=== PATIENT | male | born 1965 | race African-American/Black ===

== ENCOUNTER 2018-06-19 13:55 | Inpatient (IN) | payer OTHER ==
[2018-06-19 18:38] VITALS: BMI 22.8
--- NOTE | 2018-06-19 20:10 | HP ---
CIWA Score Nausea/Vomitin-No Nausea/No Vomiting Muscle Tremors: 1-None Visible, but [place] Anxiety: 1-Mildly Anxious Agitation: 1-Slight > Activity Paroxysmal Sweats: No Perspiration Orientation: 0-Oriented Tacttile Disturbances: 3-Moderate Itch/Numb/Burn Auditory Disturbances: 2-Mild Harshness/Frighten Visual Disturbances: 0-None Headache: 0-None Present CIWA-Ar Total Score: 8 - Admission Criteria OASAS Guidelines: Admission for Medically Managed Detox: Requires at least one of the followin. CIWA greater than 12 2. Seizures within the past 24 hours 3. Delirium tremens within the past 24 hours 4. Hallucinations within the past 24 hours 5. Acute intervention needed for co occurring medical disorder 6. Acute intervention needed for co occurring psychiatric disorder 7. Severe withdrawal that cannot be handled at a lower level of care (continued vomiting, continued diarrhea, abnormal vital signs) requiring intravenous medication and/or fluids 8. Patient presents the following: Acute intervention needed for co-occurring med or psych disorder Admission Criteria Met: Admission criteria met Admission ROS [facility] - [facility] Chief Complaint: C/O WITHDRAWAL SX'S. SEEKING DETOX AND THEN REHAB Allergies/Adverse Reactions: Allergies Allergy/AdvReac Type Severity Reaction Status Date / Time Penicillins AdvReac Verified 06/19/18 20:11 History of Present Illness: 53 Y.O. MALE WITH ALCOHOLISM HERE FOR DETOX. CLIENT WAS REFERRED BY [facility]. THIS IS HIS FIRST TIME HERE. HE C/O WITHDRAWAL SX'S. CURRENTLY CIWA IS 8. HE STATES HE NEEDS A DRINK FIRST THING EVERY MORNING. HE DRINKS A PINT OF LIQUOR DAILY. LAST DRANK THIS MORNING. REPORTS LAST INPATIENT DETOX 3 MONTHS AGO AT [facility]. DENIES ANY SIGNIFICANT PERIOD OF CLEAN TIME. DENIES HX/O SI/HI, AVH, SEIZURE D/O, BUT HAS BLACKED OUT BEFORE. PMHX- TUSCARORA, PSYCH- SCHIZOPHRENIA, BIPOLAR MEDS- LITHIUM LAST TAKEN 1 MONTH AGO Exam Limitations: No Limitations - Ebola screening Have you traveled outside of the country in the last 21 days: No Have you had contact with anyone from an Ebola affected area: No Do you have a fever: No - Review of Systems Constitutional: Loss of Appetite EENT: reports: Hearing Loss, Tinnitus (LEFT EAR) Respiratory: reports: No Symptoms reported Cardiac: reports: No Symptoms Reported GI: reports: Poor Appetite, Poor Fluid Intake : reports: No Symptoms Reported Musculoskeletal: reports: No Symptoms Reported Integumentary: reports: No Symptoms Reported Neuro: reports: Tremors Endocrine: reports: No Symptoms Reported Hematology: reports: No Symptoms Reported Psychiatric: reports: Depressed Other Systems: Reviewed and Negative Patient History - Patient Medical History Hx Anemia: No Hx Asthma: No Hx Chronic Obstructive Pulmonary Disease (COPD): No Hx Cancer: No Hx Cardiac Disorders: No Hx Congestive Heart Failure: No Hx Hypertension: No Hx Hypercholesterolemia: No Hx Pacemaker: No HX Cerebrovascular Accident: No Hx Seizures: No Hx Dementia: No Hx Diabetes: No Hx Gastrointestinal Disorders: No Hx Liver Disease: No Hx Genitourinary Disorders: No Hx Sexually Transmitted Disorders: No Hx Renal Disease (ESRD): No Hx Thyroid Disease: No Hx Human Immunodeficiency Virus (HIV): No Hx Hepatitis C: No Hx Depression: Yes Hx Suicide Attempt: No Hx Bipolar Disorder: Yes (LITHIUM) Hx Schizophrenia: No Other Medical History: DENIES - Patient Surgical History Past Surgical History: Yes Hx Appendectomy: Yes Anesthesia Reaction: No - PPD History Previous Implant?: Yes Documented Results: Negative w/o proof Implanted On Prior [facility] Admission?: No PPD to be Administered?: Yes - Smoking Cessation Smoking history: Current every day smoker Have you smoked in the past 12 months: Yes Aproximately how many cigarettes per day: 6 Cigars Per Day: 0 Hx Chewing Tobacco Use: No Initiated information on smoking cessation: Yes 'Breaking Loose' booklet given: 06/19/18 - Substance & Tx. History Hx Alcohol Use: Yes Hx Substance Use: Yes Substance Use Type: Alcohol Hx Substance Use Treatment: Yes ([facility]) - Substances Abused LIQUOR-E&J Route: Oral Frequency: Daily Amount used: 1 PINT Age of first use: 17 Date of Last Use: 06/19/18 Family Disease History - Family Disease History Family Disease History: Other: Father (ALCOHOL) Admission Physical Exam [facility] - Vital Signs Vital Signs: Vital Signs - 24 hr 06/19/18 18:34 Temperature 96.2 F L Pulse Rate 95 H Respiratory 20 Rate Blood Pressure 114/80 - Physical General Appearance: Yes: Disheveled, Tremorous (FELT), Anxious HEENTM: Yes: EOMI, Normocephalic, Normal Voice, MONAE, Pharynx Normal, Other ( LOUD VOICE) Respiratory: Yes: Chest Non-Tender, Lungs Clear, Normal Breath Sounds, No Respiratory Distress, No Accessory Muscle Use Neck: Yes: No masses,lesions,Nodules, Supple, Trachea in good position Breast: Yes: Breast Exam Deferred Cardiology: Yes: Regular Rhythm, Regular Rate, S1, S2 Abdominal: Yes: Normal Bowel Sounds, Non Tender, Soft Genitourinary: Yes: Within Normal Limits (NO C/O) Back: Yes: Normal Inspection Musculoskeletal: Yes: full range of Motion, Gait Steady Extremities: Yes: Normal Range of Motion, Non-Tender, Tremors (FELT) Neurological: Yes: Fully Oriented, Alert, Motor Strength 5/5, Depressed Affect Integumentary: Yes: Dry, Warm Lymphatic: Yes: Within Normal Limits - Diagnostic (1) Alcohol dependence with uncomplicated withdrawal Current Visit: Yes Status: Acute (2) Bipolar 1 disorder, depressed Current Visit: Yes Status: Suspected (3) TUSCARORA (hard of hearing) Current Visit: Yes Status: Chronic Qualifiers: Hearing loss type: unspecified (4) Nicotine dependence Current Visit: Yes Status: Chronic Qualifiers: Nicotine product type: cigarettes Substance use status: uncomplicated Qualified Code(s): F17.210 - Nicotine dependence, cigarettes, uncomplicated (5) Homeless Current Visit: Yes Status: Chronic Cleared for Admission [facility] - Detox or Rehab [facility] Level of Care: Medically Managed Detox Regimen/Protocol: Librium Claeared for Rehab Admission: No [facility] Breath Alcohol Content Breath Alcohol Content: 0 Urine Drug Screen - Results Drug Screen Negative: No Urine Drug Screen Results: THC-Marijuana, BZO-Benzodiazepines
[2018-06-19] MEDS ORDERED: MAG HYDROX/AL HYDROX/SIMETH 30 ML UNIT-DOSE CUP PO PRN (20:27)
[2018-06-19] MEDS ORDERED: MENTHOL/PHENOL 1 EACH UD MM PRN (20:27)
[2018-06-19] MEDS ORDERED: hydrOXYzine PAMOATE 50 MG CAPSULE (FP) PO PRN (20:27)
[2018-06-19] MEDS ORDERED: IBUPROFEN 400 MG TABLET (FP) PO PRN (20:27)
[2018-06-19] MEDS ORDERED: MAGNESIUM HYDROX 2400MG/30ML ORAL SUSPENSION 30 ML CUP PO PRN (20:27)
[2018-06-19] MEDS ORDERED: LOPERAMIDE HCL 2 MG CAPSULE PO PRN (20:27)
[2018-06-19] MEDS ORDERED: guaiFENesin/D-METHORPHAN HB 10 ML UNIT-DOSE CUPS PO PRN (20:27)
[2018-06-19] MEDS ORDERED: chlordiazePOXIDE HCL 25 MG CAPSULE PO PRN (20:27)
[2018-06-19] MEDS ORDERED: MAGNESIUM CITRATE 300 ML BOTTLE PO PRN (20:27)
[2018-06-19] MEDS ORDERED: P-EPHED 60MG/TRIPROLIDI 2.5MG TABLET PO PRN (20:27)
[2018-06-19] MEDS ORDERED: ACETAMINOPHEN 325 MG TABLET (FP) PO PRN (20:27)
[2018-06-19] MEDS ORDERED: MELATONIN 5 MG TABLETS PO PRN (22:00)
[2018-06-19] MEDS: THIAMINE HCL 100 MG TABLET (FP) PO SCH (22:26)
[2018-06-19] MEDS: chlordiazePOXIDE HCL 25 MG CAPSULE PO SCH (22:27)
[2018-06-20] MEDS: chlordiazePOXIDE HCL 25 MG CAPSULE PO SCH ×4 (06:00→22:51)
--- NOTE | 2018-06-20 10:12 | CONSULT ---
[facility] Psychiatric Consult - Data Date of interview: 06/20/18 Admission source: [facility] Identifying data: This is a 53 years old male, single, domiciled, unempoloyed, on SSI support, with psychiatric hospitalization history, with history of Alcohol and Nicotine dependence, is here reporting withdrawal symptomsm and seeking for detox. As per chart ashok has Bipolar Disorde history. Substance Abuse History: Smoking history: Current every day smoker. Have you smoked in the past 12 months: Yes. Aproximately how many cigarettes per day: 6. Cigars Per Day: 0. Hx Chewing Tobacco Use: No. Initiated information on smoking cessation: Yes. 'Breaking Loose' booklet given: 06/19/18. - Substance & Tx. History. Hx Alcohol Use: Yes. Hx Substance Use: Yes. Substance Use Type : Alcohol. Hx Substance Use Treatment: Yes ([facility]). - Substances Abused. LIQUOR-E&J. Route: Oral. Frequency: Daily. Amount used : 1 PINT. Age of first use: 17. Date of Last Use: 06/19/18 Medical History: Hearing problems. Denies significant medical problems. Psychiatric History: Patient reports to carry Bipolar Disorder with most recent psychiatric admission 2 months ago at [facility] , reports taking [place] 300mg po bid, refusing to take [place] during detox, but motivated to restsrt Thoreau during rehabilitation treatment. Denies suicidal, homicidal history Physical/Sexual Abuse/Trauma History: Denies Additional Comment: Consider [place] 300mg po bid Mental Status Exam - Mental Status Exam Alert and Oriented to: Person Cognitive Function: Fair Patient Appearance: Unkempt Mood: Sad Affect: Flat Patient Behavior: Cooperative Speech Pattern: Delayed Voice Loudness: Mildly Soft/Quiet Thought Process: Goal Oriented Thought Disorder: Being Controlled Hallucinations: Denies Suicidal Ideation: Denies Homicidal Ideation: Denies Insight/Judgement: Fair Sleep: Difficulty falling asleep Appetite: Fair Muscle strength/Tone: Mild Hypotonicity Gait/Station: Shuffling Additional Comments: Consider [place] 300mg po bid Psychiatric Findings - Problem List ([place] 1, 2,3) (1) Alcohol dependence with uncomplicated withdrawal Current Visit: Yes Status: Acute (2) TANGIRNAQ (hard of hearing) Current Visit: Yes Status: Chronic Qualifiers: Hearing loss type: unspecified (3) Nicotine dependence Current Visit: Yes Status: Chronic Qualifiers: Nicotine product type: cigarettes Substance use status: uncomplicated Qualified Code(s): F17.210 - Nicotine dependence, cigarettes, uncomplicated (4) Bipolar 1 disorder, depressed Current Visit: Yes Status: Suspected - Initial Treatment Plan Initial Treatment Plan: Consider [place] 300mg po bid
--- NOTE | 2018-06-20 10:31 | PN ---
[facility] CIWA - CIWA Score Nausea/Vomitin-Mild Nausea/No Vomiting Muscle Tremors: 3 Anxiety: 2 Agitation: 3 Paroxysmal Sweats: 1-Minimal Palms Moist Orientation: 1-Uncertain about Date Tacttile Disturbances: 0-None Auditory Disturbances: 0-None Visual Disturbances: 0-None Headache: 1-Very Mild CIWA-Ar Total Score: 12 [facility] Progress Note (SOAP) Subjective: tremor sweat mild gi distress Objective: 06/20/18 10:31 Vital Signs Temperature 97.8 F 06/20/18 09:51 Pulse Rate 72 06/20/18 09:51 Respiratory Rate 18 06/20/18 09:51 Blood Pressure 123/64 06/20/18 09:51 O2 Sat by Pulse Oximetry (%) lab pending Assessment: 06/20/18 10:31 alcohol withdrawal sx Plan: continue alcohol detox
[2018-06-20 10:34] LABS: HEMATOCRIT 38.8 % (35.4-49); HEMOGLOBIN 12.8 GM/dL (11.7-16.9); MCH 28.8 pg (25.7-33.7); MCHC 33.1 g/dl (32.0-35.9); MEAN CELL VOLUME 87.1 fl (80-96); MEAN PLT VOLUME 7.2 fl (7.5-11.1); PLATELET COUNT 257 K/MM3 (134-434); RBC 4.45 M/mm3 (4.00-5.60); RDW 14.9 % (11.9-15.9); WHITE BLOOD COUNT 8.9 K/mm3 (4.0-10.0)
[2018-06-20] MEDS: PRENATAL VITAMINS W/ FOLIC ACID TABLET (FP) PO SCH (11:01)
[2018-06-20] MEDS: NICOTINE 14 MG/24 HOURS TOPICAL PATCH TD SCH (11:02)
[2018-06-20 11:42] LABS: ALK PHOS 65 U/L (45-117); ANION GAP 8 MMOL/L (8-16); BILIRUBIN,TOTAL 0.3 mg/dL (0.2-1); BLOOD UREA NITROGEN 9 mg/dL (7-18); CALCIUM 8.3 mg/dL (8.5-10.1); CHLORIDE 110 mmol/L (98-107); CO2 24 mmol/L (21-32); CREATININE 0.7 mg/dL (0.55-1.3); GLUCOSE,RANDOM 78 mg/dL (74-106); POTASSIUM 4.2 mmol/L (3.5-5.1); SGOT/AST 13 U/L (15-37); SGPT/ALT 17 U/L (13-61); SODIUM 143 mmol/L (136-145); TOT PROT 5.7 g/dl (6.4-8.2)
--- NOTE | 2018-06-20 12:52 | EKG ---
Test Reason : Blood Pressure : / mmHG Vent. Rate : 075 BPM Atrial Rate : 075 BPM P-R Int : 188 ms QRS Dur : 100 ms QT Int : 372 ms P-R-T Axes : 061 006 067 degrees QTc Int : 415 ms NORMAL SINUS RHYTHM NORMAL ECG NO PREVIOUS ECGS AVAILABLE Confirmed by DORYS LEON MD ([id number]) on 06/20/2018 12:51:53 PM Referred By: Confirmed By:DORYS LEON MD
[2018-06-20] MEDS: THIAMINE HCL 100 MG TABLET (FP) PO SCH (22:51)
[2018-06-21] MEDS: chlordiazePOXIDE HCL 25 MG CAPSULE PO SCH ×2 (06:03→10:36)
[2018-06-21 09:35] VITALS: BP 108/61; PULSE 85; TEMP 95.8
[2018-06-21] MEDS: PRENATAL VITAMINS W/ FOLIC ACID TABLET (FP) PO SCH (10:35)
[2018-06-21] MEDS: NICOTINE 14 MG/24 HOURS TOPICAL PATCH TD SCH (10:36)
--- NOTE | 2018-06-21 15:14 | PN ---
[facility] Progress Note Note: NOTIFIED BY STAFF PATIENT REQUESTED TO SIGN OUT AMA. PATIENT ENCOURAGED TO COMPLETE DETOX BUT REFUSED. PATIENT STATED " I HAVE TO GO BACK TO [facility]". PATIENT DENIES SI/HI. PATIENT ADVISED TO SEEK MEDICAL ATTENTION IF WITHDRAWAL SYMPTOMS WORSEN AND TO FOLLOW UP PCP FOR FOLLOW UP SOON POSSIBLE.
--- NOTE | 2018-06-21 15:15 | DS ---
[facility] Detox Discharge Summary Admission Date: 06/19/18 Discharge Date: 06/21/18 - History Present History: Alcohol Dependence - Physical Exam Results Vital Signs: Vital Signs Temperature 95.8 F L 06/21/18 09:34 Pulse Rate 85 06/21/18 09:34 Respiratory Rate 18 06/21/18 09:34 Blood Pressure 108/61 06/21/18 09:34 O2 Sat by Pulse Oximetry (%) - Treatment Hospital Course: Detoxed Safely - Medication Discharge Medications: Ambulatory Orders Onycha Carbonate [Eskalith -] 300 mg PO BID 06/19/18 - AMA Did Patient Leave Against Medical Advice: Yes
[2018-06-21] MEDS ORDERED: chlordiazePOXIDE 5 MG CAPSULE PO SCH (23:00)
[2018-06-22] MEDS ORDERED: chlordiazePOXIDE HCL 10 MG CAPSULE PO SCH (23:00)
== END 2018-06-21 11:41 | disposition left against medical advice (07) | DRG 770 ==
LOC: YASAS 13:55 → Y3N 17:59
PROC: HZ2ZZZZ Detoxification Services for Substance Abuse Treatment (ICD-10-PCS; principal; 2018-06-19)
DX: F10.230 Alcohol dependence with withdrawal, uncomplicated (principal); F17.210 Nicotine dependence, cigarettes, uncomplicated; F31.9 Bipolar disorder, unspecified; H91.90 Unspecified hearing loss, unspecified ear; Z88.0 Allergy status to penicillin; Z59.0 Homelessness
CPT/HCPCS: 36415; 80053; 85027; 86593; 93005; 93010

== ENCOUNTER 2018-07-22 10:20 | Inpatient (IN) | payer OTHER ==
[2018-07-22 12:53] VITALS: BMI 22.3
--- NOTE | 2018-07-22 13:45 | HP ---
CIWA Score Nausea/Vomitin Muscle Tremors: 2 Anxiety: 1-Mildly Anxious Agitation: 1-Slight > Activity Paroxysmal Sweats: 1-Minimal Palms Moist Orientation: 1-Uncertain about Date Tacttile Disturbances: 1-Very Mild Itch/Numbness Auditory Disturbances: 1-Very Mild Visual Disturbances: 2-Mild Sensitivity Headache: 0-None Present CIWA-Ar Total Score: 12 - Admission Criteria OASAS Guidelines: Admission for Medically Managed Detox: Requires at least one of the followin. CIWA greater than 12 2. Seizures within the past 24 hours 3. Delirium tremens within the past 24 hours 4. Hallucinations within the past 24 hours 5. Acute intervention needed for co occurring medical disorder 6. Acute intervention needed for co occurring psychiatric disorder 7. Severe withdrawal that cannot be handled at a lower level of care (continued vomiting, continued diarrhea, abnormal vital signs) requiring intravenous medication and/or fluids 8. Admission ROS S - [facility] Chief Complaint: WITHDRAWAL SYMPTOMS Allergies/Adverse Reactions: Allergies Allergy/AdvReac Type Severity Reaction Status Date / Time Penicillins AdvReac Verified 07/22/18 13:29 History of Present Illness: 53 Y.O. 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 HE WAS LAST THERE ON 06/21/18 FOR DETOX BUT LEFT AMA. Exam Limitations: No Limitations - Ebola screening Have you traveled outside of the country in the last 21 days: No Have you had contact with anyone from an Ebola affected area: No Have you been sick,other than usual withdrawal symptoms: No Do you have a fever: No - Review of Systems Constitutional: Night Sweats, Changes in sleep EENT: reports: Blurred Vision Respiratory: reports: Wheezing Cardiac: reports: No Symptoms Reported GI: reports: No Symptoms Reported : reports: No Symptoms Reported Musculoskeletal: reports: Back Pain Integumentary: reports: No Symptoms Reported Neuro: reports: Headache, Tremors Endocrine: reports: No Symptoms Reported Hematology: reports: No Symptoms Reported Psychiatric: reports: Mood/Affect Appropiate, other (BIPOLAR AND SCHIZOPHRENIA) Other Systems: Reviewed and Negative Patient History - Patient Medical History Hx Anemia: No Hx Asthma: No Hx Chronic Obstructive Pulmonary Disease (COPD): No Hx Cancer: No Hx Cardiac Disorders: No Hx Congestive Heart Failure: No Hx Hypertension: No Hx Hypercholesterolemia: No Hx Pacemaker: No HX Cerebrovascular Accident: No Hx Seizures: No Hx Dementia: No Hx Diabetes: No Hx Gastrointestinal Disorders: No Hx Liver Disease: No Hx Genitourinary Disorders: No Hx Sexually Transmitted Disorders: No Hx Renal Disease (ESRD): No Hx Thyroid Disease: No Hx Human Immunodeficiency Virus (HIV): No Hx Hepatitis C: No Hx Depression: Yes Hx Suicide Attempt: No Hx Bipolar Disorder: Yes (LITHIUM) Hx Schizophrenia: Yes (DENIED AUDITORY AND VISUAL HALLUCINATIONS ) - Patient Surgical History Past Surgical History: Yes Hx Abdominal Surgery: Yes (HERNIA REPAIR ) Hx Appendectomy: Yes Anesthesia Reaction: No - PPD History Previous Implant?: Yes Documented Results: Negative w/o proof Implanted On Prior [facility] Admission?: Yes Date: 06/21/18 PPD to be Administered?: Yes - Reproductive History Patient is a Female of Child Bearing Age (11 -55 yrs old): No - Smoking Cessation Smoking history: Current every day smoker Have you smoked in the past 12 months: Yes Aproximately how many cigarettes per day: 6 Cigars Per Day: 0 Hx Chewing Tobacco Use: No Initiated information on smoking cessation: Yes 'Breaking Loose' booklet given: 07/22/18 - Substance & Tx. History Hx Alcohol Use: Yes Hx Substance Use: Yes Substance Use Type: Alcohol Hx Substance Use Treatment: Yes ([facility]) - Substances Abused Alcohol Route: Oral Frequency: Daily Amount used: 2 PINTS JACK Age of first use: 17 Date of Last Use: 07/22/18 K2 Route: Smoking Frequency: Daily Amount used: 1 JOINT Age of first use: 51 Date of Last Use: 07/22/18 Family Disease History - Family Disease History Family Disease History: Other: Father (ALCOHOL) Admission Physical Exam S - Vital Signs Vital Signs: Vital Signs - 24 hr 07/22/18 12:52 Temperature 97.9 F Pulse Rate 99 H Respiratory 16 Rate Blood Pressure 117/71 - Physical General Appearance: Yes: Disheveled, Sweating, Anxious HEENTM: Yes: Hearing grossly Normal, Normocephalic, Normal Voice Respiratory: Yes: Chest Non-Tender, Lungs Clear, Normal Breath Sounds, No Respiratory Distress Neck: Yes: No masses,lesions,Nodules Breast: Yes: Breast Exam Deferred Cardiology: Yes: Regular Rhythm, Regular Rate Abdominal: Yes: Normal Bowel Sounds, Non Tender, Flat Genitourinary: Yes: Other (No complaints reported) Back: Yes: Normal Inspection Musculoskeletal: Yes: full range of Motion, Gait Steady, Pelvis Stable Extremities: Yes: Normal Capillary Refill, Normal Inspection, Normal Range of Motion Neurological: Yes: Alert, Normal Mood/Affect, Normal Response Integumentary: Yes: Normal Color, Dry, Warm - Diagnostic (1) Alcohol dependence with uncomplicated withdrawal Current Visit: Yes Status: Chronic (2) Nicotine dependence Current Visit: Yes Status: Chronic Qualifiers: Nicotine product type: cigarettes Substance use status: uncomplicated Qualified Code(s): F17.210 - Nicotine dependence, cigarettes, uncomplicated (3) FALSE PASS (hard of hearing) Current Visit: Yes Status: Chronic Qualifiers: Hearing loss type: unspecified Cleared for Admission [facility] - Detox or Rehab [facility] Level of Care: Medically Managed Detox Regimen/Protocol: Librium [facility] Breath Alcohol Content Breath Alcohol Content: 0 Urine Drug Screen - Results Drug Screen Negative: Yes
[2018-07-22] MEDS ORDERED: ACETAMINOPHEN 325 MG TABLET (FP) PO PRN (14:04)
[2018-07-22] MEDS ORDERED: MENTHOL/PHENOL 1 EACH UD MM PRN (14:04)
[2018-07-22] MEDS ORDERED: LOPERAMIDE HCL 2 MG CAPSULE PO PRN (14:04)
[2018-07-22] MEDS ORDERED: MAG HYDROX/AL HYDROX/SIMETH 30 ML UNIT-DOSE CUP PO PRN (14:04)
[2018-07-22] MEDS ORDERED: P-EPHED 60MG/TRIPROLIDI 2.5MG TABLET PO PRN (14:04)
[2018-07-22] MEDS ORDERED: hydrOXYzine PAMOATE 50 MG CAPSULE (FP) PO PRN (14:04)
[2018-07-22] MEDS ORDERED: NICOTINE POLACRILEX 2 MG GUM BUC PRN (14:04)
[2018-07-22] MEDS ORDERED: guaiFENesin/D-METHORPHAN HB 10 ML UNIT-DOSE CUPS PO PRN (14:04)
[2018-07-22] MEDS ORDERED: IBUPROFEN 400 MG TABLET (FP) PO PRN (14:04)
[2018-07-22] MEDS ORDERED: chlordiazePOXIDE HCL 25 MG CAPSULE PO PRN (14:04)
[2018-07-22] MEDS ORDERED: MAGNESIUM HYDROX 2400MG/30ML ORAL SUSPENSION 30 ML CUP PO PRN (14:04)
[2018-07-22] MEDS ORDERED: MAGNESIUM CITRATE 300 ML BOTTLE PO PRN (14:04)
--- NOTE | 2018-07-22 15:37 | CONSULT ---
[facility] Psychiatric Consult - Data Date of interview: 07/22/18 Admission source: [facility] Identifying data: This is a 53 years old male , single, homeless, on PA support , with psychiatric hospitalization history, history of Bipolar Disorder, is here seeking detox reporting withdrawal symptoms, reports abusing history of K-2 , Alcohol and Nicotine Substance Abuse History: Smoking history: Current every day smoker. Have you smoked in the past 12 months: Yes. Aproximately how many cigarettes per day: 6. Cigars Per Day: 0. Hx Chewing Tobacco Use: No. Initiated information on smoking cessation: Yes. 'Breaking Loose' booklet given: 07/22/18. - Substance & Tx. History. Hx Alcohol Use: Yes. Hx Substance Use: Yes. Substance Use Type : Alcohol. Hx Substance Use Treatment: Yes ([facility]). - Substances Abused. Alcohol. Route: Oral. Frequency: Daily. Amount used: 2 PINTS JACK. Age of first use: 17. Date of Last Use: 07/22/18. K2. Route: Smoking. Frequency : Daily. Amount used: 1 JOINT. Age of first use: 51. Date of Last Use: Medical History: Hearin problems Psychiatric History: Patient reports to carry Bipolar Disorder, reports taking prior to admission: [place] 450mg po bid. Risperdal 2mg po qhs. Reports most recent psychiatric admission on at [facility]. Denies suicidal, homicidal history Physical/Sexual Abuse/Trauma History: Denies Additional Comment: [place] 450mg po bid. Risperdal 2mg po qhs Mental Status Exam - Mental Status Exam Alert and Oriented to: Person Cognitive Function: Fair Patient Appearance: Unkempt Mood: Apprehensive Affect: Mood Congruent Patient Behavior: Cooperative Speech Pattern: Appropriate Voice Loudness: Normal Thought Process: Circumstantial, Goal Oriented Thought Disorder: Being Controlled Hallucinations: Denies Suicidal Ideation: Denies Homicidal Ideation: Denies Insight/Judgement: Fair Sleep: Difficulty falling asleep Appetite: Weight loss Muscle strength/Tone: Normal Gait/Station: Normal Additional Comments: [place] 450mg po bid. Risperdal 2mg po qhs Psychiatric Findings - Problem List ([place] 1, 2,3) (1) Cannabis abuse Current Visit: Yes Status: Acute (2) Alcohol dependence with uncomplicated withdrawal Current Visit: Yes Status: Chronic (3) Nicotine dependence Current Visit: Yes Status: Chronic Qualifiers: Nicotine product type: cigarettes Substance use status: uncomplicated Qualified Code(s): F17.210 - Nicotine dependence, cigarettes, uncomplicated (4) Bipolar 1 disorder, depressed Current Visit: No Status: Suspected - Initial Treatment Plan Initial Treatment Plan: [place] 450mg po bid. Risperdal 2mg po qhs. [place] blood level
[2018-07-22] MEDS: chlordiazePOXIDE HCL 25 MG CAPSULE PO SCH ×2 (18:16→22:21)
[2018-07-22] MEDS ORDERED: MELATONIN 5 MG TABLETS PO PRN (22:00)
[2018-07-22] MEDS: LITHIUM CARBONATE 450 MG TABLET.ER PO SCH (22:21)
[2018-07-22] MEDS: risperiDONE 2 MG TABLET PO SCH (22:21)
[2018-07-22] MEDS: THIAMINE HCL 100 MG TABLET (FP) PO SCH (22:21)
[2018-07-23] MEDS: chlordiazePOXIDE HCL 25 MG CAPSULE PO SCH ×4 (05:54→22:51)
[2018-07-23] MEDS: NICOTINE 14 MG/24 HOURS TOPICAL PATCH TD SCH (10:15)
[2018-07-23] MEDS: LITHIUM CARBONATE 450 MG TABLET.ER PO SCH ×2 (10:15→22:50)
[2018-07-23] MEDS: PRENATAL VITAMINS W/ FOLIC ACID TABLET (FP) PO SCH (10:15)
[2018-07-23 11:47] LABS: ALBUMIN 3.3 g/dl (3.4-5.0); ALK PHOS 59 U/L (45-117); ANION GAP 5 MMOL/L (8-16); BILIRUBIN,TOTAL 0.4 mg/dL (0.2-1); BLOOD UREA NITROGEN 10 mg/dL (7-18); CALCIUM 8.7 mg/dL (8.5-10.1); CHLORIDE 109 mmol/L (98-107); CO2 27 mmol/L (21-32); CREATININE 0.8 mg/dL (0.55-1.3); GLUCOSE,RANDOM 79 mg/dL (74-106); SGOT/AST 10 U/L (15-37); SGPT/ALT 18 U/L (13-61); SODIUM 141 mmol/L (136-145); TOT PROT 6.1 g/dl (6.4-8.2)
[2018-07-23 11:57] LABS: HEMATOCRIT 39.2 % (35.4-49); HEMOGLOBIN 13.2 GM/dL (11.7-16.9); MCH 29.9 pg (25.7-33.7); MCHC 33.7 g/dl (32.0-35.9); MEAN CELL VOLUME 88.8 fl (80-96); MEAN PLT VOLUME 7.4 fl (7.5-11.1); PLATELET COUNT 256 K/MM3 (134-434); RBC 4.42 M/mm3 (4.00-5.60); RDW 15.1 % (11.9-15.9); WHITE BLOOD COUNT 7.9 K/mm3 (4.0-10.0)
[2018-07-23] MEDS ORDERED: FLU VACCINE QUAD 60 MCG/0.5 ML (MDV 18-19) IM ONE (12:00)
--- NOTE | 2018-07-23 12:14 | PN ---
[facility] CIWA - CIWA Score Nausea/Vomitin-No Nausea/No Vomiting Muscle Tremors: 3 Anxiety: 3 Agitation: 3 Paroxysmal Sweats: 3 Orientation: 0-Oriented Tacttile Disturbances: 0-None Auditory Disturbances: 0-None Visual Disturbances: 0-None Headache: 0-None Present CIWA-Ar Total Score: 12 [facility] Progress Note (SOAP) Subjective: sleepy body aches sweats sore throat Objective: 07/23/18 12:14 Vital Signs Temperature 98.1 F 07/23/18 09:23 Pulse Rate 89 07/23/18 09:23 Respiratory Rate 18 07/23/18 09:23 Blood Pressure 109/72 07/23/18 09:23 O2 Sat by Pulse Oximetry (%) Laboratory Tests 07/23/18 07/23/18 07:00 07:00 WBC 7.9 RBC 4.42 Hgb 13.2 Hct 39.2 MCV 88.8 MCH 29.9 MCHC 33.7 RDW 15.1 Plt Count 256 MPV 7.4 L Sodium 141 Potassium 4.0 Chloride 109 H Carbon Dioxide 27 Anion Gap 5 L BUN 10 Creatinine 0.8 Creat Clearance w eGFR > 60 Random Glucose 79 Calcium 8.7 Total Bilirubin 0.4 AST 10 L ALT 18 Alkaline Phosphatase 59 Total Protein 6.1 L Albumin 3.3 L aaox3 ambulating no acute distress throat assessed; no s/s of infection Assessment: 07/23/18 12:14 withdrawal sx Plan: continue detox increase fluids throat lozenges prn
[2018-07-23] MEDS: THIAMINE HCL 100 MG TABLET (FP) PO SCH (22:50)
[2018-07-23] MEDS: risperiDONE 2 MG TABLET PO SCH (22:50)
[2018-07-24] MEDS: chlordiazePOXIDE HCL 25 MG CAPSULE PO SCH ×2 (07:22→10:29)
[2018-07-24] MEDS: NICOTINE 14 MG/24 HOURS TOPICAL PATCH TD SCH (10:29)
[2018-07-24] MEDS: LITHIUM CARBONATE 450 MG TABLET.ER PO SCH (10:29)
[2018-07-24] MEDS: PRENATAL VITAMINS W/ FOLIC ACID TABLET (FP) PO SCH (10:29)
--- NOTE | 2018-07-24 13:50 | PN ---
[facility] CIWA - CIWA Score Nausea/Vomitin-No Nausea/No Vomiting Muscle Tremors: 3 Anxiety: 3 Agitation: 2 Paroxysmal Sweats: 1-Minimal Palms Moist Orientation: 0-Oriented Tacttile Disturbances: 0-None Auditory Disturbances: 0-None Visual Disturbances: 0-None Headache: 0-None Present CIWA-Ar Total Score: 9 [facility] Progress Note (SOAP) Subjective: tired sweats body aches Objective: 07/24/18 13:50 Vital Signs Temperature 98.4 F 07/24/18 11:19 Pulse Rate 92 H 07/24/18 11:19 Respiratory Rate 07/24/18 11:19 Blood Pressure 108/62 07/24/18 11:19 O2 Sat by Pulse Oximetry (%) Laboratory Tests 07/23/18 07/23/18 07/23/18 07:00 07:00 07:00 WBC 7.9 RBC 4.42 Hgb 13.2 Hct 39.2 MCV 88.8 MCH 29.9 MCHC 33.7 RDW 15.1 Plt Count 256 MPV 7.4 L Sodium 141 Potassium 4.0 Chloride 109 H Carbon Dioxide 27 Anion Gap 5 L BUN 10 Creatinine 0.8 Creat Clearance w eGFR > 60 Random Glucose 79 Calcium 8.7 Total Bilirubin 0.4 AST 10 L ALT 18 Alkaline Phosphatase 59 Total Protein 6.1 L Albumin 3.3 L [place] RPR Titer Nonreactive 07/23/18 07:00 WBC RBC Hgb Hct MCV MCH MCHC RDW Plt Count MPV Sodium Potassium Chloride Carbon Dioxide Anion Gap BUN Creatinine Creat Clearance w eGFR Random Glucose Calcium Total Bilirubin AST ALT Alkaline Phosphatase Total Protein Albumin [place] 0.3 L RPR Titer aaox3 ambulating no acute distress Assessment: 07/24/18 13:50 withdrawal sx Plan: continue detox increase fluids
[2018-07-24 13:55] VITALS: BP 121/77; PULSE 78; TEMP 97.2
[2018-07-24] MEDS ORDERED: chlordiazePOXIDE 5 MG CAPSULE PO SCH (17:00)
[2018-07-25] MEDS ORDERED: chlordiazePOXIDE HCL 10 MG CAPSULE PO SCH (17:00)
== END 2018-07-24 15:55 | disposition left against medical advice (07) | DRG 770 ==
LOC: YASAS 10:20 → Y6N 14:28
PROVIDERS: ADMIT Neuromusculoskeletal Medicine & OMM; ATTEND Neuromusculoskeletal Medicine & OMM
PROC: HZ2ZZZZ Detoxification Services for Substance Abuse Treatment (ICD-10-PCS; principal; 2018-07-22)
DX: F10.230 Alcohol dependence with withdrawal, uncomplicated (principal); F12.10 Cannabis abuse, uncomplicated; F17.210 Nicotine dependence, cigarettes, uncomplicated; F31.9 Bipolar disorder, unspecified; F20.9 Schizophrenia, unspecified; H91.90 Unspecified hearing loss, unspecified ear; Z88.0 Allergy status to penicillin
CPT/HCPCS: 36415; 80053; 80178; 85027; 86593; 90688; G0008